=== PATIENT | male | born 1950 | race Caucasian/White ===

== ENCOUNTER 2020-09-09 15:25 | Emergency (ER) | payer MEDICARE, BC ==
[2020-09-09] MEDS ORDERED: Sodium Chloride 0.9% 10 ML Syringe FLUSH PRN (15:44)
--- NOTE | 2020-09-09 16:19 | CT ---
[id number] CT/CT Head Stroke Protocol EXAM: CT Head Stroke Protocol CLINICAL DATA: STROKE PROTOCOL. COMPARISON STUDY: None FINDINGS: No intracranial hemorrhage, extra-axial fluid collection, mass, or acute ischemia. Generalized parenchymal atrophy with scattered areas of nonspecific white matter disease, commonly seen as sequela of chronic microvascular ischemia. Soft tissues are unremarkable. Paranasal sinuses and mastoid air cells are clear. IMPRESSION: No acute intracranial findings. Findings discussed with ordering provider at time of dictation. Luís Lisa DO 09/09/20 0778 Thank you for allowing us to participate in the care of your patient.
--- NOTE | 2020-09-09 16:20 | EDM.PDOC ---
ED HPI GENERAL MEDICAL PROBLEM - General Chief Complaint: Neurological Problem Stated Complaint: LEFT SIDED WEAKNESS Time Seen by Provider: 09/09/20 15:51 Source of Information: Reports: Patient, Provider (Flora King), Significant Other History Limitations: Reports: No Limitations - History of Present Illness INITIAL COMMENTS - FREE TEXT/NARRATIVE: Patient presents for evaluation of weakness and balance issues. He was at the [facility] where he was evaluated by Flora King NP. She called me with details, most significantly that he couldn't pass a Romberg test and he had positive orthostatic pressures. She couldn't elicit assymetric weakness although at first she wondered if his left arm was weak; patient confirmed that he has chronic left shoulder weakness from old injury/surgery. Patient and his tell me that this became noticeably problematic about exactly 24 hours ago. They also say that he has had problems with balance for a few years. Yesterday he got weak in the bathroom and went to the floor without hitting his head or other injury. He did experience urine incontinence. His says he was very tired all evening but she never noticed any leaning or tilting to one side; denies facial droop. She says that he is definitely better today than he was yesterday. They both tell me that he wasn't able to walk well all evening but that sometime during the night he improved and at 0530 this morning he got up and walked to the bathroom without problems. His says today he has been walking okay. - Related Data Allergies Allergy/AdvReac Type Severity Reaction Status Date / Time lisinopril Allergy Cough Verified 09/09/20 16:40 Home Meds: Home Meds Aspirin [Adult Low Dose Aspirin EC] 81 mg PO DAILY 09/09/20 [History] Empagliflozin [Jardiance] 25 mg PO DAILY 09/09/20 [History] Fish Oil/DHA/EPA [Fish Oil 1,200 MG] 1,200 mg PO DAILY 09/09/20 [History] Losartan [Cozaar] 25 mg PO DAILY 09/09/20 [History] Melatonin 5 mg PO BEDTIME 09/09/20 [History] Metoprolol Succinate [Toprol Xl] 12.5 mg PO DAILY 09/09/20 [History] Multivitamin 1 each PO DAILY 09/09/20 [History] Xylitol [Xylimelts] 550 mg MM BEDTIME 09/09/20 [History] atorvaSTATin Calcium [Lipitor] 10 mg PO BEDTIME 09/09/20 [History] glipiZIDE [Glipizide ER] 20 mg PO DAILY 09/09/20 [History] metFORMIN [Glucophage XR] 2,000 mg PO DAILY 09/09/20 [History] ED ROS GENERAL - Review of Systems Review Of Systems: See Below Constitutional: Reports: Weakness, Fatigue, Diaphoresis ( says he was sweating yesterday in the bathroom). Denies: Fever, Chills, Malaise HEENT: Denies: Ear Pain, Throat Pain, Vision Change Respiratory: Denies: Shortness of Breath, Cough Cardiovascular: Reports: Lightheadedness, Syncope. Denies: Chest Pain Endocrine: Reports: Fatigue GI/Abdominal: Denies: Abdominal Pain, Diarrhea, Vomiting : Reports: Incontinence Musculoskeletal: Denies: Neck Pain, Shoulder Pain, Arm Pain, Back Pain, Leg Pain Skin: Denies: Cyanosis, Jaundice, Mottled, Pallor Neurological: Denies: Confusion, Dizziness, Headache, Seizure, Trouble Speaking Psychiatric: Denies: Agitation, Anxiety, Confusion Hematologic/Lymphatic: Denies: Easy Bleeding ED EXAM, NEURO - Physical Exam Exam: See Below Exam Limited By: No Limitations General Appearance: Alert, WD/WN, No Apparent Distress Eye Exam: Bilateral Eye: EOMI, Normal Inspection (full, symmetric visual tavarez), PERRL Ears: Normal External Exam, Hearing Grossly Normal Nose: Normal Inspection, No Blood Throat/Mouth: Normal Inspection, Normal Lips, Normal Voice, No Airway Compromise, Other (symmetric) Head Exam: Atraumatic, Normocephalic Neck: Normal Inspection, Supple, Non-Tender, Full Range of Motion Respiratory/Chest: No Respiratory Distress, Lungs Clear, Normal Breath Sounds, No Accessory Muscle Use Cardiovascular: Regular Rate, Rhythm, No Murmur GI/Abdominal: Normal Bowel Sounds, Soft, Non-Tender, No Organomegaly, No Distention Neurological: Alert, Normal Mood/Affect, Normal Dorsiflexion, CN II-XII Intact, Normal Plantar Flexion, Normal Gait, No Motor/Sensory Deficits, Oriented x 3, Straight Leg Raise (L), Straight Leg Raise (R) (equal 5/5), Other (Romberg is negative at this time; he was slightly unsteady at first but was easily able to maintain balance for >30 seconds without opening his eyes or moving his feet.) Back Exam: Normal Inspection, Full Range of Motion Extremities: Normal Inspection, Normal Range of Motion, Non-Tender Psychiatric: Normal Affect, Normal Mood Skin Exam: Warm, Dry, Intact, Normal Color, No Rash Course - Vital Signs Last Recorded V/S: Last Vital Signs Temp 99.1 F 09/09/20 15:46 Pulse 90 09/09/20 17:16 Resp 13 09/09/20 17:16 BP 143/76 H 09/09/20 17:16 Pulse Ox 98 09/09/20 17:16 Orthostatic Blood Pressure [ 121/73 Standing] Orthostatic Blood Pressure [ 134/77 Sitting] Orthostatic Blood Pressure [ 143/81 Supine] - Orders/Labs/Meds Orders: Active Orders 24 hr Category Date Time Status EKG Documentation Completion [RC] ASDIRECTED Care 09/09/20 15:45 Active Peripheral IV Care [RC] . DIRECTED Care 09/09/20 15:45 Active Sodium Chloride 0.9% [Saline Flush] Med 09/09/20 15:44 Active 10 ml FLUSH Q8HR PRN Peripheral IV Insertion Adult [OM.PC] Routine Oth 09/09/20 15:44 Ordered EKG 12 Lead [EK] Stat Ther 09/09/20 15:44 Ordered Medication Orders Sodium Chloride (Saline Flush) 10 ml FLUSH Q8HR PRN PRN Reason: keep vein open Labs: Laboratory Tests 09/09/20 09/09/20 Range/Units 16:00 16:00 WBC 5.33 (5.00-10.00) 10^3/uL RBC 4.56 (4.50-6.00) 10^6/uL Hgb 13.6 (13.0-17.0) g/dL Hct 41.6 (40.0-52.0) % MCV 91.2 (82.0-92.0) fL MCH 29.8 (27.0-31.0) pg MCHC 32.7 (32.0-36.0) g/dL RDW 14.7 H (11.5-14.5) % Plt Count 195 (150-400) 10^3/uL MPV 9.8 (7.4-10.4) fL Immature Gran % (Auto) 0.2 (0.0-5.0) % Neut % (Auto) 63.7 (50.0-70.0) % Lymph % (Auto) 14.3 L (20.0-40.0) % [place] % (Auto) 21.2 H (2.0-8.0) % Eos % (Auto) 0.2 L (1.0-3.0) % Baso % (Auto) 0.4 (0.0-1.0) % Neut # (Auto) 3.40 (2.50-7.00) 10^3/uL Lymph # (Auto) 0.76 L (1.00-4.00) 10^3/uL [place] # (Auto) 1.13 H (0.10-0.80) 10^3/uL Eos # (Auto) 0.01 L (0.10-0.30) 10^3/uL Baso # (Auto) 0.02 (0.00-0.10) 10^3/uL Immature Gran # (Auto) 0.01 (0.00-0.50) 10^3/uL Sodium 140 (136-145) mmol/L Potassium 4.4 (3.3-5.3) mmol/L Chloride 104 (98-115) mmol/L Carbon Dioxide 27.7 (21.0-32.0) mmol/L Anion Gap 12.7 (5-15) mmol/L BUN 17 (6-25) mg/dL Creatinine 1.19 H (0.51-1.17) mg/dL Est Cr Clr Drug Dosing 61.59 mL/min Estimated GFR (MDRD) > 60 mL/min Glucose 113 H (75 - 99) mg/dL Calcium 9.0 (8.7-10.3) mg/dL Troponin I < 0.04 (0.00-0.070) ng/mL Meds: Medications Generic Name Dose Route Start Last Admin Trade Name Freq PRN Reason Stop Dose Admin Sodium Chloride 10 ml 09/09/20 15:44 Saline Flush FLUSH Q8HR PRN keep vein open Discontinued Medications Generic Name Dose Route Start Last Admin Trade Name Freq PRN Reason Stop Dose Admin Sodium Chloride 1,000 mls @ 999 mls/hr 09/09/20 16:25 09/09/20 16:28 Normal Saline IV 09/09/20 17:25 999 mls/hr .BOLUS ONE Administration - Re-Assessments/Exams Free Text/Narrative Re-Assessment/Exam: 09/09/20 16:26 NIHSS is zero. Radiologist called to inform me that head CT shows no acute pathology. Patient says he drinks about 4 cups of water daily. Will give a liter of saline now. 09/09/20 17:52 Discussed findings and treatment recommendations with patient and his . He did okay with repeat orthostatic checks and walking to the bathroom. Discharged to home in stable condition. Departure - Departure Time of Disposition: 17:40 Disposition: Home, Self-Care 01 Condition: Good Clinical Impression: Orthostatic hypotension - Discharge Information Referrals: Flora King [facility] [Primary Care Provider] - Forms: ED Department Discharge Additional Instructions: Drink 8 cups of water daily. Take care to avoid lightheadedness or fainting the first few seconds after you stand up. Follow up with your PCP in 2 days for recheck and evaluation. Recheck sooner if any worsening. Sepsis Event Note (ED) - Evaluation Sepsis Screening Result: No Definite Risk - Focused Exam Vital Signs: Vital Signs Temp Pulse Resp BP Pulse Ox 09/09/20 17:16 90 13 143/76 H 98 09/09/20 17:00 86 17 139/81 95 09/09/20 16:45 90 25 H 120/77 95 09/09/20 16:30 98 18 117/76 98 09/09/20 16:15 98 20 120/78 96 09/09/20 16:00 105 H 22 H 124/78 95 09/09/20 15:46 99.1 F 94 15 116/89 96 - My Orders Last 24 Hours: My Active Orders 09/09/20 15:44 Sodium Chloride 0.9% [Saline Flush] 10 ml FLUSH Q8HR PRN Peripheral IV Insertion Adult [OM.PC] Routine EKG 12 Lead [EK] Stat 09/09/20 15:45 EKG Documentation Completion [RC] ASDIRECTED Peripheral IV Care [RC] . DIRECTED - Assessment/Plan Last 24 Hours: My Active Orders 09/09/20 15:44 Sodium Chloride 0.9% [Saline Flush] 10 ml FLUSH Q8HR PRN Peripheral IV Insertion Adult [OM.PC] Routine EKG 12 Lead [EK] Stat 09/09/20 15:45 EKG Documentation Completion [RC] ASDIRECTED Peripheral IV Care [RC] . DIRECTED
[2020-09-09] MEDS ORDERED: Sodium Chloride 0.9% 1,000 ML IV ONE (16:25)
[2020-09-09 16:51] LABS: ANION GAP 12.7 mmol/L (5-15); CHLORIDE,CL 104 mmol/L (98-115); SODIUM,NA 140 mmol/L (136-145)
== END 2020-09-09 17:55 | disposition home or self-care (01) ==
LOC: KA.ED 15:25
DX: I95.1 Orthostatic hypotension (principal); Z88.8 Allergy status to other drugs, medicaments and biological substances; Z79.82 Long term (current) use of aspirin; Z79.84 Long term (current) use of oral hypoglycemic drugs; Z79.899 Other long term (current) drug therapy
CPT/HCPCS: 36415; 70450; 80048; 82962; 84484; 85025; 93005; 99284; 99285-25; J7030

== ENCOUNTER 2020-09-12 19:38 | Emergency (ER) | payer MEDICARE, BC ==
--- NOTE | 2020-09-12 19:55 | EDM.PDOC ---
ED HPI GENERAL MEDICAL PROBLEM - General Chief Complaint: Respiratory Problem Stated Complaint: SOB,weakness Time Seen by Provider: 09/12/20 19:40 Source of Information: Reports: Patient, EMS, Provider History Limitations: Reports: No Limitations - History of Present Illness INITIAL COMMENTS - FREE TEXT/NARRATIVE: Problem: 70-year-old male, presents by ambulance from his residence with an advanced life support intercept per [facility]. He had been seen earlier in the week by his provider in the clinic secondary of dizziness. He went home with dizziness worsening through the course of the week. He had been seen in the emergency department for a work-up including CT of the head without contrast showing no evidence of acute dysfunction. Dizziness is worsened as well as fever of 100.2 but other than that no Covid symptoms. Covid test performed with results coming today being positive. Raises the question of Covid related encephalopathy with his ongoing symptoms and now confirmed COVID-19 positive testing. Please review chart from previous visit for other details of that examination. Was noted to be hypoglycemic at the time of arrival the ambulance from his residence, oral glucose was administered. - Related Data Allergies Allergy/AdvReac Type Severity Reaction Status Date / Time lisinopril Allergy Cough Verified 09/12/20 20:17 Home Meds: Home Meds Aspirin [Adult Low Dose Aspirin EC] 81 mg PO DAILY 09/09/20 [History] Empagliflozin [Jardiance] 25 mg PO DAILY 09/09/20 [History] Fish Oil/DHA/EPA [Fish Oil 1,200 MG] 1,200 mg PO DAILY 09/09/20 [History] Losartan [Cozaar] 25 mg PO DAILY 09/09/20 [History] Melatonin 5 mg PO BEDTIME 09/09/20 [History] Metoprolol Succinate [Toprol Xl] 12.5 mg PO DAILY 09/09/20 [History] Multivitamin 1 each PO DAILY 09/09/20 [History] Xylitol [Xylimelts] 550 mg MM BEDTIME 09/09/20 [History] atorvaSTATin Calcium [Lipitor] 10 mg PO BEDTIME 09/09/20 [History] glipiZIDE [Glipizide ER] 20 mg PO DAILY 09/09/20 [History] metFORMIN [Glucophage XR] 2,000 mg PO DAILY 09/09/20 [History] Past Medical History HEENT History: Reports: Impaired Vision Cardiovascular History: Reports: Heart Murmur, High Cholesterol, Hypertension Respiratory History: Reports: None Gastrointestinal History: Reports: None, Colon Polyp Genitourinary History: Reports: None Musculoskeletal History: Reports: Fracture Neurological History: Reports: Neuropathy, Diabetic Psychiatric History: Reports: None Endocrine/Metabolic History: Reports: Diabetes, Type II Hematologic History: Reports: None Immunologic History: Reports: None Oncologic (Cancer) History: Reports: None Dermatologic History: Reports: None - Infectious Disease History Infectious Disease History: Reports: Chicken Pox, Measles, Mumps, Rheumatic Fever - Past Surgical History HEENT Surgical History: Reports: None Cardiovascular Surgical History: Reports: None Respiratory Surgical History: Reports: None GI Surgical History: Reports: Colonoscopy, Polypectomy Male Surgical History: Reports: Circumcision Endocrine Surgical History: Reports: None Neurological Surgical History: Reports: None Musculoskeletal Surgical History: Reports: Shoulder Surgery Oncologic Surgical History: Reports: None Dermatological Surgical History: Reports: None Social & Family History - Family History Family Medical History: No Pertinent Family History - Caffeine Use Caffeine Use: Reports: Coffee, Soda ED ROS GENERAL - Review of Systems Review Of Systems: Comprehensive ROS is negative, except as noted in HPI. Constitutional: Reports: Fever ED EXAM, GENERAL - Physical Exam Exam: See Below Free Text/Narrative:: Alert, oriented to time date and place. Weakness is noted in his demeanor as he seems somewhat sleepy. He has no cyanosis nor pallor noted. HEENT is negative discharge or deformity. PERRLA with 3 mm pupils no icterus nor injection noted. Tacky oral membranes with no exudate. Neck is soft and supple no lymphadenopathy, I do not appreciate any carotid bruit. Thorax is overall clear with fine scattered rhonchi, exhalation induces a cough x1. When asked he states he has been coughing occasionally. Cardiac is S1-S2 I do not appreciate murmur. Abdomen is soft bowel sounds are present no hepatosplenomegaly is noted. Pelvic girdle is intact There is trace edema +1 at the sock line with skin warm and dry. He is able to do straight leg raise 5/5 heel mccracken 5/5. 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 Extreme dizziness with any motion unable to go beyond semifowler. He speaks of symptoms being the worst with weakness and deficit with inability to function and ambulate worsening today. Facial expression is symmetrical, no deficits noted in his features, somewhat drowsy and weak in his general appearance. #1 Interpretation EKG Date: 09/12/20 Time: 20:21 Rhythm: NSR Altus: LAD-Left Altus Deviation QRS: Other (Low voltage appearance with poor transition) ST-T: Normal QT: Normal Comparison: No Change Course - Vital Signs Last Recorded V/S: Last Vital Signs Temp 36.9 C 09/12/20 19:40 Pulse 92 09/12/20 21:20 Resp 28 H 09/12/20 21:20 BP 121/61 09/12/20 21:20 Pulse Ox 97 09/12/20 21:20 - Orders/Labs/Meds Orders: Active Orders 24 hr Category Date Time Status EKG Documentation Completion [RC] ASDIRECTED Care 09/12/20 19:57 Active Nurse Communication: Isolation [RC] ASDIRECTED Care 09/12/20 20:31 Active Peripheral IV Care [RC] . DIRECTED Care 09/12/20 21:09 Active Head wo Cont [CT] Stat Exams 09/12/20 19:56 Ordered CULTURE BLOOD [BC] Stat Lab 09/12/20 20:10 Received Sodium Chloride 0.9% [Saline Flush] Med 09/12/20 21:09 Active 10 ml FLUSH Q8HR PRN Isolation [COMM] Routine Oth 09/12/20 20:31 Ordered Peripheral IV Insertion Adult [OM.PC] Routine Oth 09/12/20 21:09 Ordered EKG 12 Lead [EK] Urgent Ther 09/12/20 19:57 Ordered Medication Orders Sodium Chloride (Saline Flush) 10 ml FLUSH Q8HR PRN PRN Reason: keep vein open Labs: Laboratory Tests 09/12/20 09/12/20 09/12/20 Range/Units 20:00 20:00 20:00 WBC 3.32 L (5.00-10.00) 10^3/uL RBC 4.45 L (4.50-6.00) 10^6/uL Hgb 13.2 (13.0-17.0) g/dL Hct 39.9 L (40.0-52.0) % MCV 89.7 (82.0-92.0) fL MCH 29.7 (27.0-31.0) pg MCHC 33.1 (32.0-36.0) g/dL RDW 14.4 (11.5-14.5) % Plt Count 164 (150-400) 10^3/uL MPV 10.1 (7.4-10.4) fL Immature Gran % (Auto) 0.3 (0.0-5.0) % Neut % (Auto) 77.4 H (50.0-70.0) % Lymph % (Auto) 12.7 L (20.0-40.0) % [place] % (Auto) 9.3 H (2.0-8.0) % Eos % (Auto) 0.0 L (1.0-3.0) % Baso % (Auto) 0.3 (0.0-1.0) % Neut # (Auto) 2.57 (2.50-7.00) 10^3/uL Lymph # (Auto) 0.42 L (1.00-4.00) 10^3/uL [place] # (Auto) 0.31 (0.10-0.80) 10^3/uL Eos # (Auto) 0.00 L (0.10-0.30) 10^3/uL Baso # (Auto) 0.01 (0.00-0.10) 10^3/uL Immature Gran # (Auto) 0.01 (0.00-0.50) 10^3/uL D-Dimer, Quantitative 999 H (<400) ng/mL Sodium 139 (136-145) mmol/L Potassium 3.7 (3.3-5.3) mmol/L Chloride 101 (98-115) mmol/L Carbon Dioxide 26.9 (21.0-32.0) mmol/L Anion Gap 14.8 (5-15) mmol/L BUN 16 (6-25) mg/dL Creatinine 1.13 (0.51-1.17) mg/dL Est Cr Clr Drug Dosing 64.86 mL/min Estimated GFR (MDRD) > 60 mL/min Glucose 34 L* (75 - 99) mg/dL Lactic Acid (0.4-2.0) mmol/L Calcium 8.4 L (8.7-10.3) mg/dL Total Bilirubin 0.6 (0.2-1.0) mg/dL AST 50 H (15-37) U/L ALT 39 (12-78) U/L Alkaline Phosphatase 57 (46-116) IU/L Troponin I 0.04 (0.00-0.070) ng/mL Total Protein 7.0 (6.4-8.2) g/dL Albumin 2.90 L (3.00-4.80) g/dL Specimen Type Urine Color (YELLOW) Urine Appearance (CLEAR) Urine pH (5.0-9.0) Ur Specific Douds (1.005-1.030) Urine Protein (NEGATIVE) mg/dL Urine Glucose (UA) (NEGATIVE) mg/dL Urine Ketones (NEGATIVE) mg/dL Urine Occult Blood (NEGATIVE) Urine Nitrite (NEGATIVE) Urine Bilirubin (NEGATIVE) Urine Urobilinogen (0.2-1.0) E.U./dL Ur Leukocyte Esterase (NEGATIVE) Urine RBC (0-5) /HPF Urine WBC (0-5) /HPF Amorphous Sediment (0/HPF) /HPF Urine Bacteria (NONE TO FEW) /HPF 09/12/20 09/12/20 Range/Units 20:10 21:02 WBC (5.00-10.00) 10^3/uL RBC (4.50-6.00) 10^6/uL Hgb (13.0-17.0) g/dL Hct (40.0-52.0) % MCV (82.0-92.0) fL MCH (27.0-31.0) pg MCHC (32.0-36.0) g/dL RDW (11.5-14.5) % Plt Count (150-400) 10^3/uL MPV (7.4-10.4) fL Immature Gran % (Auto) (0.0-5.0) % Neut % (Auto) (50.0-70.0) % Lymph % (Auto) (20.0-40.0) % [place] % (Auto) (2.0-8.0) % Eos % (Auto) (1.0-3.0) % Baso % (Auto) (0.0-1.0) % Neut # (Auto) (2.50-7.00) 10^3/uL Lymph # (Auto) (1.00-4.00) 10^3/uL [place] # (Auto) (0.10-0.80) 10^3/uL Eos # (Auto) (0.10-0.30) 10^3/uL Baso # (Auto) (0.00-0.10) 10^3/uL Immature Gran # (Auto) (0.00-0.50) 10^3/uL D-Dimer, Quantitative (<400) ng/mL Sodium (136-145) mmol/L Potassium (3.3-5.3) mmol/L Chloride (98-115) mmol/L Carbon Dioxide (21.0-32.0) mmol/L Anion Gap (5-15) mmol/L BUN (6-25) mg/dL Creatinine (0.51-1.17) mg/dL Est Cr Clr Drug Dosing mL/min Estimated GFR (MDRD) mL/min Glucose (75 - 99) mg/dL Lactic Acid 1.6 (0.4-2.0) mmol/L Calcium (8.7-10.3) mg/dL Total Bilirubin (0.2-1.0) mg/dL AST (15-37) U/L ALT (12-78) U/L Alkaline Phosphatase (46-116) IU/L Troponin I (0.00-0.070) ng/mL Total Protein (6.4-8.2) g/dL Albumin (3.00-4.80) g/dL Specimen Type Urincc Urine Color Yellow (YELLOW) Urine Appearance Clear (CLEAR) Urine pH 5.0 (5.0-9.0) Ur Specific [place] >= 1.030 (1.005-1.030) Urine Protein 30 H (NEGATIVE) mg/dL Urine Glucose (UA) 500 H (NEGATIVE) mg/dL Urine Ketones Negative (NEGATIVE) mg/dL Urine Occult Blood Trace-lysed H (NEGATIVE) Urine Nitrite Negative (NEGATIVE) Urine Bilirubin Negative (NEGATIVE) Urine Urobilinogen 0.2 (0.2-1.0) E.U./dL Ur Leukocyte Esterase Negative (NEGATIVE) Urine RBC 0-5 (0-5) /HPF Urine WBC 0-5 (0-5) /HPF Amorphous Sediment Many H (0/HPF) /HPF Urine Bacteria Occasional (NONE TO FEW) /HPF Meds: Medications Generic Name Dose Route Start Last Admin Trade Name Freq PRN Reason Stop Dose Admin Sodium Chloride 10 ml 11/13/20 21:09 Saline Flush FLUSH Q8HR PRN keep vein open Discontinued Medications Generic Name Dose Route Start Last Admin Trade Name Isatu PRN Reason Stop Dose Admin Dextrose/Water 50 ml 09/12/20 21:02 09/12/20 21:11 Dextrose 50% In Water IVPUSH 09/12/20 21:03 50 ml ONETIME ONE Administration - Radiology Interpretation Free Text/Narrative:: 1 view chest x-ray with bilateral infiltrates. With white count not elevated, attributed to viral pneumonia secondary of COVID-19. - Re-Assessments/Exams Free Text/Narrative Re-Assessment/Exam: 09/12/20 21:30 After bolus/25 g of D50, blood sugar was repeated at this time to be 117. 09/12/20 21:31 [place] [id number] call for covid +, elevated D-dimer discussion Nicole AQUINO to call hospitalist. 09/12/20 21:41 09/12/20 21:49 Dr. Landon Departure - Departure Time of Disposition: 22:48 Disposition: DC/Tfer to [facility] 02 Condition: Good Clinical Impression: Lab test positive for detection of COVID-19 virus, Generalized weakness, Cough, Headache - Discharge Information *PRESCRIPTION DRUG MONITORING PROGRAM REVIEWED*: Not Applicable *COPY OF PRESCRIPTION DRUG MONITORING REPORT IN PATIENT PONCE: Not Applicable Forms: ED Department Discharge Additional Instructions: Transfer [facility] Dr. Landon accepting/attending Sepsis Event Note (ED) - Focused Exam Vital Signs: Vital Signs Temp Pulse Resp BP Pulse Ox 09/12/20 21:20 92 28 H 121/61 97 09/12/20 21:00 94 29 H 126/78 95 09/12/20 20:24 97 30 H 167/98 H 93 L 09/12/20 19:40 36.9 C 97 10 L 153/96 H 95 - Problem List & Annotations (1) Lab test positive for detection of COVID-19 virus SNOMED Code(s): 8990906921275476 Code(s): U07.1 - COVID-19 Status: Acute Priority: High (2) Generalized weakness SNOMED Code(s): 04129565 Code(s): R53.1 - WEAKNESS Status: Acute Priority: High (3) Cough SNOMED Code(s): 66729320 Code(s): R05 - COUGH Status: Acute Priority: High (4) Headache SNOMED Code(s): 32508528 Code(s): R51.9 - HEADACHE, UNSPECIFIED Status: Acute Priority: High Qualifiers: Headache type: other headache syndrome Qualified Code(s): G44.89 - Other headache syndrome (5) Elevated d-dimer SNOMED Code(s): 687393057 Code(s): R79.89 - OTHER SPECIFIED ABNORMAL FINDINGS OF BLOOD CHEMISTRY Status: Acute Priority: High - Problem List Review Problem List Initiated/Reviewed/Updated: Yes - My Orders Last 24 Hours: My Active Orders 09/12/20 19:56 Head wo Cont [CT] Stat 09/12/20 19:57 EKG Documentation Completion [RC] ASDIRECTED EKG 12 Lead [EK] Urgent 09/12/20 20:10 CULTURE BLOOD [BC] Stat 09/12/20 20:31 Nurse Communication: Isolation [RC] ASDIRECTED Isolation [COMM] Routine 09/12/20 21:09 Peripheral IV Care [RC] . DIRECTED Sodium Chloride 0.9% [Saline Flush] 10 ml FLUSH Q8HR PRN Peripheral IV Insertion Adult [OM.PC] Routine - Assessment/Plan Last 24 Hours: My Active Orders 09/12/20 19:56 Head wo Cont [CT] Stat 09/12/20 19:57 EKG Documentation Completion [RC] ASDIRECTED EKG 12 Lead [EK] Urgent 09/12/20 20:10 CULTURE BLOOD [BC] Stat 09/12/20 20:31 Nurse Communication: Isolation [RC] ASDIRECTED Isolation [COMM] Routine 09/12/20 21:09 Peripheral IV Care [RC] . DIRECTED Sodium Chloride 0.9% [Saline Flush] 10 ml FLUSH Q8HR PRN Peripheral IV Insertion Adult [OM.PC] Routine Plan: Transfer [facility] Dr. Landon accepting/attending
--- NOTE | 2020-09-12 20:43 | CR ---
[id number] RAD/RAD Chest PA or AP 1V EXAM: SINGLE VIEW CHEST. INDICATION: VIRAL INFECTION COMPARISON: NO PREVIOUS SIMILAR EXAM IS AVAILABLE FINDINGS: Patchy bilateral infiltrates are seen The cardiac silhouette is enlarged The aorta is tortuous IMPRESSION: EARLY BILATERAL PNEUMONIA Angel Wright MD 09/12/206 Thank you for allowing us to participate in the care of your patient.
[2020-09-12 20:55] LABS: ANION GAP 14.8 mmol/L (5-15); CHLORIDE,CL 101 mmol/L (98-115); SODIUM,NA 139 mmol/L (136-145)
[2020-09-12] MEDS ORDERED: 50% Dextrose in Water 50 ML Syringe IVPUSH ONE (21:02)
[2020-09-12] MEDS ORDERED: Sodium Chloride 0.9% 10 ML Syringe FLUSH PRN (21:09)
[2020-09-12] MEDS ORDERED: Enoxaparin 40 MG/0.4 ML Syringe SUBCUT ONE (22:00)
[2020-09-12] MEDS ORDERED: Dexamethasone 4 MG Tab PO ONE (22:01)
[2020-09-12] MEDS ORDERED: Acetaminophen 325 MG Tab ONE (22:15)
[2020-09-12] MEDS ORDERED: Acetaminophen 325 MG Tab PO ONE (22:20)
--- NOTE | 2020-09-13 08:45 | CT ---
[id number] CT/CT Head WO IV EXAM: CT Head WO IV CLINICAL DATA: NEUROLOGIC DEFICIT COMPARISON: CORRELATION IS MADE WITH SEPTEMBER 09, 2020 FINDINGS: There is no mass or mass effect. There is no hemorrhage or hydrocephalus. There are no extra-axial fluid collections. There are no sites of abnormal attenuation. IMPRESSION: NO PLAIN CT EVIDENCE OF ACUTE INTRACRANIAL PROCESS. Angel Wright MD 09/13/20 0844 Thank you for allowing us to participate in the care of your patient.
== END 2020-09-12 23:10 ==
LOC: KA.ED 19:38
DX: U07.1 COVID-19 (principal); R53.1 Weakness; I10 Essential (primary) hypertension; E78.00 Pure hypercholesterolemia, unspecified; E11.40 Type 2 diabetes mellitus with diabetic neuropathy, unspecified; Z88.8 Allergy status to other drugs, medicaments and biological substances; Z79.82 Long term (current) use of aspirin; Z79.899 Other long term (current) drug therapy
CPT/HCPCS: 36415; 70450; 71045; 80053; 81001; 82962; 83605; 84484; 85025; 85379; 87040; 93005; 96372; 96374; 99284; 99285-25; A9270-GY; J1650; J8540